=== PATIENT | female | born 1950 | race Caucasian/White ===

== ENCOUNTER 2016-10-01 14:34 | Inpatient (IN) ==
[2016-10-01] MEDS ORDERED: ZOFRAN IV ONE (14:37)
[2016-10-01] MEDS ORDERED: NS 1,000 ML IV ONE (14:49)
[2016-10-01 15:08] LABS: MANUAL DIFF NEEDED? NO
[2016-10-01 15:15] LABS: BASO% 0.2 % (0.0-0.8); EOS# 0.07 X1000 (0.0-0.7); EOS% 0.8 % (0.0-10.0); HEMATOCRIT 45.9 % (37.0-47.0); HEMOGLOBIN 15.4 g/dL (12.0-16.0); IMM GRAN# 0.02 X1000 (0.0-0.04); IMM GRAN% 0.2 % (0.0-0.5); LYMPH# 2.09 X1000 (1.2-3.4); MCH 28.8 PG (27-31); MCHC 33.6 g/dL (33-37); MONO# 0.72 X1000 (0.11-0.59); MONO% 8.3 % (1.7-9.3); MPV 11.1 FL (7.4-10.4); NEUT% 66.5 % (42.2-75.2); PLT 441 X1000 (130-400); RBC 5.34 XMIL (4.2-5.4)
[2016-10-01 15:33] LABS: ALBUMIN 4.7 g/dL (3.5-5.0); CALCIUM 10.4 mg/dL (8.8-10.2); MAGNESIUM 1.7 mg/dL (1.5-2.7); POTASSIUM 2.9 mmol/L (3.5-5.1); TOTAL BILIRUBIN 0.36 mg/dL (0.20-1.00); TOTAL PROTEIN 8.5 g/dL (6.3-8.3)
[2016-10-01 15:58] LABS: INR 1.08; PROTIME 11.4 Seconds (9.2-11.7); PTT 28.1 Seconds (22.0-36.0)
[2016-10-01] MEDS ORDERED: KLOR-CON PO ONE (16:25)
[2016-10-01 16:39] LABS: URINE CULTURE NEEDED? NO; URINE MICRO REVIEW NEEDED? NO; URINE SOURCE CLEAN CATCH
[2016-10-01 16:49] LABS: BILIRUBIN URINE NEGATIVE (NEGATIVE); BLOOD URINE NEGATIVE (NEGATIVE); COLOR YELLOW; GLUCOSE URINE NEGATIVE (NEGATIVE); LEUKOCYTES URINE NEGATIVE (NEGATIVE); NITRITE URINE NEGATIVE (NEGATIVE); PH URINE 5.5; PROTEIN URINE NEGATIVE (NEGATIVE); SP GRAVITY URINE 1.014; TURBIDITY URINE CLEAR (CLEAR); UROBILINOGEN URINE NORMAL (NORMAL)
[2016-10-01 16:52] LABS: UR EPITHELIAL CELLS <10 /HPF (<10); URINE BACTERIA NEGATIVE /HPF; URINE RBC <10 /HPF (<10); URINE WBC <10 /HPF (<10)
--- NOTE | 2016-10-01 17:38 | PROVIDER DOCUMENTATION ---
This chart was entered by Layne Francois Scribe, acting as scribe for Kendra Arthur MD. HPI-Abdominal Pain/GI Problem - General Source: patient - History of Present Illness-ABD Nature of Presenting Problems: Pt is a 66 year old female who came to the ED with a cc of diarrhea for over a week. Pt reports she saw her PCP one week ago and her symptoms have progressed. Pt reports this morning her diarrhea was red, normally it was yellow. Pt reports she has chronic diarrhea after her gallbladder was removed, but this is worse than normal. Abdominal Pain Onset Location: reports: generalized abdomen Quality of Pain: reports: cramping Severity in ED: reports: mild Onset/Duration: reports: this morning Timing: reports: still present Associated Symptoms: reports: diarrhea, nausea. denies: vomiting Last BM: this morning Dark Stools Present?: reports: bright red blood Rectal Bleeding: reports: bloody diarrhea Bruising or Bleeding Gums?: No Similar Symptoms Previously?: Yes Recently seen or treated by another doctor?: Yes <Kendra Arthur - Last Filed: 10/01/16 17:36> <Jairo Kim - Last Filed: 10/01/16 20:17> - General Chief Complaint: Diarrhea Stated Complaint: n/d Time Seen by Provider: 10/01/16 14:38 Allergies/Adverse Reactions: Patient Allergies Allergy/AdvReac Type Severity Reaction Status Date / Time celecoxib [From Celebrex] AdvReac Unknown Verified 10/01/16 16:01 Home Medications: Home Medication List Medication Instructions Recorded Confirmed Last Taken Type ATORVAstatin [Lipitor] 80 mg PO QHS 01/18/16 10/01/16 1 Day Ago History Acetaminophen [Tylenol] 500 mg PO PRN PRN 01/18/16 10/01/16 1 Day Ago History Atenolol/Chlorthalidone 1 each PO DAILY 01/18/16 10/01/16 1 Day Ago History [Atenolol-Chlorthal 50-25 Tb] Duloxetine [Cymbalta] 60 mg PO DAILY 01/18/16 10/01/16 1 Day Ago History Fenofibrate 160 mg PO DAILY 01/18/16 10/01/16 1 Day Ago History Fish Oil/Dha/Epa [Fish Oil 1,200 1 each PO DAILY 01/18/16 10/01/16 1 Day Ago History mg Fish Oil] Furosemide [Lasix] 20 mg PO DAILY 01/18/16 10/01/16 1 Day Ago History Potassium Chloride E.r. [Micro-K] 40 meq PO DAILY 01/18/16 10/01/16 1 Day Ago History Ranitidine [Zantac] 300 mg PO DAILY 01/18/16 10/01/16 10/01/16 History Tramadol [Ultram] 100 mg PO TID 01/18/16 10/01/16 10/01/16 History Review of Systems - Adult - REVIEW OF SYSTEMS - ADULT Constitutional: denies: chills, fever Eyes: reports: no symptoms reported Ears, Nose, Mouth & Throat: reports: no symptoms reported Cardiovascular: denies: chest pain, syncope Respiratory: reports: no symptoms reported Gastrointestinal: reports: abdominal pain, diarrhea, nausea, rectal bleeding. denies: vomiting Genitourinary: denies: dysuria, hematuria Musculoskeletal: reports: no symptoms reported Integumentary: reports: no symptoms reported Neurological: reports: no symptoms reported Psychiatric: reports: no symptoms reported Endocrine: reports: no symptoms reported Hematologic/Lymphatic: reports: no symptoms reported Allergic/Immunologic: reports: no symptoms reported All Other Systems: Reviewed and Negative <Kendra Arthur - Last Filed: 10/01/16 17:36> - REVIEW OF SYSTEMS - ADULT Constitutional: reports: see HPI <Jairo Kim - Last Filed: 10/01/16 20:17> Past History - Adult - PAST MEDICAL HISTORY-ADULT Review of Records: reports: Nursing Assessment Review Major Childhood Illnesses: reports: denies history Cardiovascular: reports: HTN Respiratory: reports: denies history Gastrointestinal: reports: denies history Obstetrical/Gynecological: reports: denies history Genitourinary: reports: cancer (kidney), kidney disease Musculoskeletal: reports: denies history Neurological: reports: denies history Endocrine/Immune: reports: denies history Other Conditions: reports: denies history - IMMUNIZATION STATUS Childhood Immunizations: See Nurse Assessment Flu Vaccine: See Nurse Assessment - FAMILY HISTORY Family History: reviewed, not pertinent <Kendra Arthur - Last Filed: 10/01/16 17:36> - PAST MEDICAL HISTORY-ADULT Review of Records: reports: Medications Reviewed <Jairo Kim - Last Filed: 10/01/16 20:17> Physical Exam-General - PHYSICAL EXAM-ADULT Initial Vital Signs Reviewed: Yes - CONSTITUTIONAL General Appearance: appears well, mild distress - EYES Eyes: PERRL/EOMI, pink conjunctivae <Kendra Arthur X - Last Filed: 10/01/16 17:36> - CONSTITUTIONAL General Appearance: appears well <Jairo Kim - Last Filed: 10/01/16 20:17> Progress - PLAN OF CARE/RESULTS Progress/Plan/Lab Results: Vital Signs - 8 hr 10/01/16 14:56 Temperature 97.9 F Pulse Rate 77 Respiratory Rate 18 Blood Pressure 136/63 O2 Sat by Pulse Oximetry 100 Laboratory Results - last 24 hr 10/01/16 14:55 WBC 8.71 RBC 5.34 Hgb 15.4 Hct 45.9 MCV 86.0 MCH 28.8 MCHC 33.6 RDW Std Deviation 12.0 Plt Count 441 H MPV 11.1 H Immature Gran % (Auto) 0.2 Neut % (Auto) 66.5 Lymph % (Auto) 24.0 Meigs % (Auto) 8.3 Eos % (Auto) 0.8 Baso % (Auto) 0.2 Immature Gran # (Auto) 0.02 Neut # (Auto) 5.79 Lymph # (Auto) 2.09 Meigs # (Auto) 0.72 H Eos # (Auto) 0.07 Baso # (Auto) 0.02 Orders Category Date Time Status Saline Loc DIRECTED Care 10/01/16 14:37 Active NPO Diet 10/01/16 14:37 Active AMYLASE [CHEM] Stat Lab 10/01/16 14:55 Received CBC WITH ELECTRONIC DIFF [HEME] Stat Lab 10/01/16 14:55 Completed COMPREHENSIVE METABOLIC PANEL [CHEM] Stat Lab 10/01/16 14:55 Received LIPASE [CHEM] Stat Lab 10/01/16 14:55 Received MAGNESIUM [CHEM] Stat Lab 10/01/16 14:55 Received OCCULT BLOOD SCREENING [STOOL] Stat Lab 10/01/16 14:49 Uncollected PROTIME WITH INR [COAG] Stat Lab 10/01/16 14:55 Received PTT [COAG] Stat Lab 10/01/16 14:55 Received URINALYSIS W/POSS RFLX CULT-1 [URINALYSIS] Stat Lab 10/01/16 14:37 Uncollected 0.9% Sodium Chloride Inj [Ns] 1,000 ml Med 10/01/16 14:49 Active IV 999 mls/hr Ondansetron [Zofran] Med 10/01/16 14:37 Discontinued 4 mg IV NOW ONE Result Diagrams: 10/01/16 14:55 10/01/16 14:55 - CHANGE OF SHIFT REPORT (ED Provider) Report Given and Care Transferred to:: Dr. Kim Time of Transfer: 18:00 Items Pending: Labs, CT/MRI Results <Kendra Arthur X - Last Filed: 10/01/16 17:36> - PLAN OF CARE/RESULTS Progress/Plan/Lab Results: Vital Signs - 8 hr 10/01/16 14:56 10/01/16 17:03 10/01/16 19:24 Temperature 97.9 F Pulse Rate 77 80 Respiratory Rate 18 18 Blood Pressure 136/63 150/84 133/77 O2 Sat by Pulse Oximetry 100 99 10/01/16 17:00 Clostridium difficile Antigen (MATTHEW) - Final Stool 10/01/16 17:00 Stool Occult Blood (MATTHEW) - Final Stool Laboratory Results - last 24 hr 10/01/16 10/01/16 10/01/16 14:55 14:55 15:38 WBC 8.71 RBC 5.34 Hgb 15.4 Hct 45.9 MCV 86.0 MCH 28.8 MCHC 33.6 RDW Std Deviation 12.0 Plt Count 441 H MPV 11.1 H Immature Gran % (Auto) 0.2 Neut % (Auto) 66.5 Lymph % (Auto) 24.0 Meigs % (Auto) 8.3 Eos % (Auto) 0.8 Baso % (Auto) 0.2 Immature Gran # (Auto) 0.02 Neut # (Auto) 5.79 Lymph # (Auto) 2.09 Meigs # (Auto) 0.72 H Eos # (Auto) 0.07 Baso # (Auto) 0.02 PT 11.4 INR 1.08 PTT (Actin FS) 28.1 Sodium 132 L Potassium 2.9 L Chloride 89 L Carbon Dioxide 24 L Anion Gap 19 BUN 32 H Creatinine 1.3 H Estimated GFR/1.73 m2 41 BUN/Creatinine Ratio 25 Glucose 155 H Calculated Osmolality 275 Calcium 10.4 H Magnesium 1.7 Total Bilirubin 0.36 AST 34 H ALT 42 H Alkaline Phosphatase 98 Total Protein 8.5 H Albumin 4.7 Globulin 3.8 Albumin/Globulin Ratio 1.2 Amylase 71 Lipase 58 Urine Source Urine Color Urine Turbidity Urine pH Ur Specific [place] Urine Protein Ur Glucose (Stick) Ur Ketones (Stick) Urine Blood Urine Nitrite Urine Bilirubin Urobilinogen Dipstick Urine Leukocytes Urine WBC (Auto) Urine RBC (Auto) U Epithel Cells (Auto) Urine Bacteria (Auto) 10/01/16 16:05 WBC RBC Hgb Hct MCV MCH MCHC RDW Std Deviation Plt Count MPV Immature Gran % (Auto) Neut % (Auto) Lymph % (Auto) Meigs % (Auto) Eos % (Auto) Baso % (Auto) Immature Gran # (Auto) Neut # (Auto) Lymph # (Auto) Meigs # (Auto) Eos # (Auto) Baso # (Auto) PT INR PTT (Actin FS) Sodium Potassium Chloride Carbon Dioxide Anion Gap BUN Creatinine Estimated GFR/1.73 m2 BUN/Creatinine Ratio Glucose Calculated Osmolality Calcium Magnesium Total Bilirubin AST ALT Alkaline Phosphatase Total Protein Albumin Globulin Albumin/Globulin Ratio Amylase Lipase Urine Source CLEAN CATCH Urine Color YELLOW Urine Turbidity CLEAR Urine pH 5.5 Ur Specific [place] 1.014 Urine Protein NEGATIVE Ur Glucose (Stick) NEGATIVE Ur Ketones (Stick) NEGATIVE Urine Blood NEGATIVE Urine Nitrite NEGATIVE Urine Bilirubin NEGATIVE Urobilinogen Dipstick NORMAL Urine Leukocytes NEGATIVE Urine WBC (Auto) <10 Urine RBC (Auto) <10 U Epithel Cells (Auto) <10 Urine Bacteria (Auto) NEGATIVE Orders Category Date Time Status Saline Loc DIRECTED Care 10/01/16 14:37 Active NPO Diet 10/01/16 14:[address] ABD/PELVIS ORAL CONTR ONLY [CT] Stat Exams 10/01/16 16:51 Completed AMYLASE [CHEM] Stat Lab 10/01/16 14:55 Completed C DIFF ANTIGEN [STOOL] Stat Lab 10/01/16 17:00 Completed CBC WITH DIFF [HEME] Stat Lab 10/01/16 20:08 Ordered CBC WITH ELECTRONIC DIFF [HEME] Stat Lab 10/01/16 14:55 Completed COMPREHENSIVE METABOLIC PANEL [CHEM] Stat Lab 10/01/16 14:55 Completed H PYLORI ANTIGEN STOOL [ACEVEDO] Stat Lab 10/01/16 20:09 Uncollected LIPASE [CHEM] Stat Lab 10/01/16 14:55 Completed MAGNESIUM [CHEM] Stat Lab 10/01/16 14:55 Completed OCCULT BLOOD SCREENING [STOOL] Stat Lab 10/01/16 17:00 Completed PROTIME WITH INR [COAG] Routine Lab 10/01/16 15:38 Completed PTT [COAG] Routine Lab 10/01/16 15:38 Completed STOOL CULTURE [RM] Stat Lab 10/01/16 20:09 Uncollected URINALYSIS W/POSS RFLX CULT-1 [URINALYSIS] Stat Lab 10/01/16 16:05 Completed 0.9% Sodium Chloride Inj [Ns] 1,000 ml Med 10/01/16 14:49 Discontinued IV 999 mls/hr Ondansetron [Zofran] Med 10/01/16 14:37 Discontinued 4 mg IV NOW ONE Potassium Chloride E.r. [Klor-Con] Med 10/01/16 16:25 Discontinued 60 meq PO NOW ONE Result Diagrams: 10/01/16 14:55 10/01/16 14:55 - CT/MRI 1 CT Study: Abdomen, Pelvis Impression: Abnormal CT Results: [place], l NEPHRECTOMY, HYSTERECTOMY, PROM FATTY INFILT OF LIVER - CONSULTS/PCP/HOSPITALIST Notification #1 *Consult/PCP/Hospitalist*: Elier Time Discussed: 20:17 Consult Disposition: Admit <Jairo Kim - Last Filed: 10/01/16 20:17> Departure - Departure Date of Disposition Decision: 10/01/16 <Kendra Arthur - Last Filed: 10/01/16 17:36> - Departure Date of Disposition Decision: 10 Time of Disposition Decision: 20:13 Certified Medical Emergency: Emergent - Critical Care Note This patient required my direct & personal management of CC.: No <Jairo Kim - Last Filed: 10/01/16 20:17> - Departure DIAGNOSIS: GI bleed Qualifiers: GI bleed type/associated pathology: unspecified gastrointestinal hemorrhage type Qualified Code(s): K92.2 - Gastrointestinal hemorrhage, unspecified Diarrhea Qualifiers: Diarrhea type: unspecified type Qualified Code(s): R19.7 - Diarrhea, unspecified Disposition: ADMITTED INPATIENT 09 Condition: Good Referrals and Follow-Ups: Nicho Iglesias MD [Primary Care Provider] - This chart was documented by the indicated scribcristina, (Layne Francois Scribe) and accurately reflects the services I performed and decisions made by me, Kendra Arthur MD, as attested by the provider's signature.
--- NOTE | 2016-10-01 19:58 | Diag Imaging Result Doc PS360 ---
EXAM: CT ABD/PELVIS ORAL CONTR ONLY HISTORY: Abd pain with lower GI bleed TECHNIQUE: COMPARISON: 09/25/2012 FINDINGS: There is prominent fatty infiltration of the liver. The gallbladder has been removed. Normal spleen and adrenal glands. Normal noncontrasted pancreas. No adjacent inflammation. The left kidney has been removed. No right renal stone or right-sided hydronephrosis. No aneurysmal dilatation to the aorta. No bowel obstruction. Normal appendix. No abscess. No free air. The urinary bladder is moderately distended. The uterus is been removed. No pelvic mass. IMPRESSION: 1.Cholecystectomy, left nephrectomy, and hysterectomy 2.Prominent fatty infiltration of the liver Electronically signed by Zeke Varela 10/01/2016 7:56 PM
[2016-10-01] MEDS ORDERED: PROTONIX IV ONE (20:12)
[2016-10-01] MEDS ORDERED: SODIUM CHLORIDE 0.9% INJ ONE ×2 (20:12→21:31)
[2016-10-01 20:42] LABS: MANUAL DIFF NEEDED? NO
[2016-10-01 20:45] LABS: BASO% 0.2 % (0.0-0.8); EOS# 0.05 X1000 (0.0-0.7); EOS% 0.4 % (0.0-10.0); HEMATOCRIT 41.7 % (37.0-47.0); HEMOGLOBIN 14.1 g/dL (12.0-16.0); IMM GRAN# 0.05 X1000 (0.0-0.04); IMM GRAN% 0.4 % (0.0-0.5); LYMPH# 2.52 X1000 (1.2-3.4); LYMPH% 20.4 % (20.5-51.1); MCH 29.2 PG (27-31); MCHC 33.8 g/dL (33-37); MCV 86.3 FL (81-99); MONO# 1.15 X1000 (0.11-0.59); MONO% 9.3 % (1.7-9.3); MPV 10.7 FL (7.4-10.4); NEUT% 69.3 % (42.2-75.2); PLT 371 X1000 (130-400); RBC 4.83 XMIL (4.2-5.4)
[2016-10-01] MEDS ORDERED: ZOFRAN IV PRN (21:31)
[2016-10-01] MEDS ORDERED: DILAUDID IV PRN (21:31)
[2016-10-01] MEDS: NS 1,000 ML IV PRN (21:47)
--- NOTE | 2016-10-01 22:24 | HISTORY AND PHYSICAL ---
PRIMARY CARE PHYSICIAN: Dr. Iglesias CHIEF COMPLAINT: Diarrhea and blood in stools. HISTORY OF PRESENTING ILLNESS: A 66-year-old female with a history of GERD, hypertension who had presented to emergency department with a 10-day history of having diarrhea. She states that she was getting weak. She apparently noticed blood in the stools earlier today. Patient subsequently had come to the emergency department. She was evaluated, her stools were examined and her stools were Hemoccult positive. Due to her presenting symptoms, it was thought that she would need hospitalization for further management. At time my examination she denied any headache, fever, chills, chest pain, shortness of breath, hemoptysis or any weight changes but complained of diarrhea and not feeling well. PAST MEDICAL HISTORY: Includes GERD, hypertension, renal cancer. PAST SURGICAL HISTORY: Cholecystectomy, hysterectomy, left nephrectomy. ALLERGIES: No known drug allergies. CURRENT MEDICATIONS: As listed in MAR. SOCIAL HISTORY: She denies any history of smoking, alcohol or illicit drug use. FAMILY HISTORY: No history of coronary disease. REVIEW OF SYSTEMS: Twelve point systems is as in HPI. Other systems negative. PHYSICAL EXAMINATION: GENERAL: Cooperative, friendly female. She is resting comfortably now. VITAL SIGNS: Temperature 97.9 degrees, pulse 77, respiration 18, blood pressure 136/63, she is saturating 100%. HEENT: Atraumatic, normocephalic. Extraocular movements intact. PERRLA. NECK: Supple. CHEST: Clear to auscultation. CARDIOVASCULAR: Regular rate, rhythm. ABDOMEN: Soft. Positive bowel sounds. EXTREMITIES: No edema. NEURO: She is awake, alert, oriented x3. : No bladder distention. SKIN: Warm however there is some poor turgor. LABORATORIES AND STUDIES: Sodium 132, potassium 2.9, chloride 89, CO2 24, BUN is 32, creatinine is 1.3, glucose is 155. WBC 12.38, hemoglobin 14.1, hematocrit 41.7, platelets is 371,000. ASSESSMENT: A 66-year-old female with a history of gastroesophageal reflux disease and hypertension had presented to the emergency department with 10 days history of having diarrhea. She noticed that recently she had some blood in the stools also. She was evaluated in the ER and due to presenting symptoms she would need admission for further GI evaluation. 1. Suspected gastrointestinal bleed. 2. Acute diarrhea. 3. Hypokalemia. 4. Hypertension. PLAN: 1. We will admit the patient to medical floor with telemetry. 2. We will keep patient NPO. 3. We will consult GI. 4. We will do stool studies. 5. Replace her electrolytes and monitor potassium level. 6. We will continue with IV fluid hydration. 7. We will monitor renal function. 8. We will monitor blood pressure. Resume antihypertensive agents. 9. Put patient on DVT prophylaxis with SCD. 10. We will continue to follow and reassess. cc: Kapil Thapa MD MTDD
[2016-10-02] MEDS: TYLENOL PR PRN ×2 (00:22→16:53)
[2016-10-02 06:17] LABS: HEMATOCRIT 38.9 % (37.0-47.0); HEMOGLOBIN 12.9 g/dL (12.0-16.0); MCH 29.3 PG (27-31); MCHC 33.2 g/dL (33-37); MCV 88.4 FL (81-99); MPV 10.6 FL (7.4-10.4); RBC 4.4 XMIL (4.2-5.4)
[2016-10-02 06:43] LABS: CALCIUM 8.9 mg/dL (8.8-10.2); POTASSIUM 3.4 mmol/L (3.5-5.1)
[2016-10-02] MEDS ORDERED: SODIUM CHLORIDE 0.9% 10 ML ONE (07:32)
[2016-10-02] MEDS: PROTONIX IV SCH (08:28)
[2016-10-02] MEDS: TENORMIN PO SCH (08:29)
[2016-10-02] MEDS: HYGROTON PO SCH (08:51)
[2016-10-02] MEDS: NS 1,000 ML IV PRN (11:12)
--- NOTE | 2016-10-02 16:06 | PROGRESS NOTE ---
DATE: 10/02/2016 SUBJECTIVE: No specific complaints today. He has been having copious diarrhea heme-positive on exam. C. difficile toxin and antigen negative. Outpatient on 09/30 and negative now on C. difficile toxin. Culture from 09/30 done through the office showing no enteric pathogens, heme positive during this hospitalization and during the outpatient testing as well. WBCs have been noted on both specimens. OBJECTIVE: Vital Signs: Afebrile. Pulse. Respirations 20, blood pressure 120/69. O2 saturation 98% room air. Cardiovascular: Regular rhythm and rate. Lungs: Computed tomography angiography. Abdomen: Soft, active bowel sounds. No pinpoint tenderness. Extremities: No edema. Neurologic: Nonfocal. LABORATORY DATA/IMAGING: Shows white count 8.9, hemoglobin 12.9, platelets 308,000. PTT normal 11.4, PTT 28.1, potassium up to 3.4, up from 2.9 last evening. Sodium 141, BUN 26, creatinine 1.1. Calcium 8.9. LFTs as well. When LFTs, amylase, lipase normal. Urinalysis normal CT scan abdomen and pelvis done last evening reveals prior cholecystectomy and left nephrectomy and hysterectomy. Prominent fatty infiltration of the liver. ASSESSMENT: 1. Heme-positive diarrheal stools. 2. Hypokalemia, improved with repletion. 3. Hypertension. 4. Prominent fatty liver. 5. Single kidney, long-standing. 6. Chronic pain. 7. Depression. PLAN: At this time. I have spoken with Dr. Lang. He is going to see her in GI consultation with plans for probable colonoscopy tomorrow. Continue IV hydration. Continue her diuretic for blood pressure. Monitor her electrolytes and CBC closely, continue IV PPI. Notably she had some diarrhea with Prilosec in the past and she was in the office on 09/30 and we changed her off of the Prilosec to Zantac, but at this time we will continue the IV Protonix until we can ascertain better what is causing her diarrhea episodes. cc: Nicho Iglesias MD
[2016-10-02] MEDS: POTASSIUM CHLORIDE 20 MEQ in NS 1,000 ML IV PRN (16:53)
--- NOTE | 2016-10-02 18:53 | CONSULTATION ---
DATE OF CONSULTATION: 10/02/2016 REASON FOR CONSULTATION: Ten days of diarrhea with some recent blood in the stool. HISTORY OF PRESENT ILLNESS: This 66-year-old lady, who has a history of gastroesophageal reflux. About 2 weeks ago she has started taking Prevacid and she remembered that she had diarrhea before also with Prevacid but she stopped, but continues to have diarrhea, abdominal cramps, and more recently blood in the stool. Came to the emergency room with Hemoccult positive stool. No fever or chills. No previous history of colitis. No family history of ulcerative colitis or colon cancer. She was admitted for further evaluation. PAST MEDICAL HISTORY: Gastroesophageal reflux disease, hypertension, renal cancer. PAST SURGICAL HISTORY: Cholecystectomy, hysterectomy, and left nephrectomy. ALLERGIES: None. CURRENT MEDICATIONS: As listed in the MAR. SOCIAL HISTORY: She does not smoke, drink, or any drug use. FAMILY HISTORY: Positive for coronary artery disease. No colon cancer or inflammatory bowel disease. REVIEW OF SYSTEMS: Twelve point system negative, other than HPI. PHYSICAL EXAMINATION: General: Cooperative, friendly, resting comfortably. Vital Signs: Temperature 97.9, pulse 77, respirations 18, blood pressure 130/60, saturation 100%. HEENT: No scleral icterus. Mild conjunctival pallor present. Neck: Supple. Trachea in the midline. Heart: Normal first and second heart sounds. Lungs: Clear. Abdomen: Soft, slightly tender vaguely in the left lower quadrant. Bowel sounds present and normal. Extremities: No edema or cyanosis. Neurological: Awake, alert, and oriented. No focal deficits. LABORATORY DATA: Shows potassium is low at 2.9, chloride is low. BUN 32 and creatinine 1.3. H and H are normal. White count is up at 12.38. IMPRESSION AND PLAN: 1. A 66-year-old lady with a new onset of diarrhea with blood in the stool. She will be needing a colonoscopy. 2. Gastroesophageal reflux has been bothering her. She probably needs an upper GI endoscopy as well. 3. Hyperkalemia. 4. Hypertension. Hyperkalemia is being corrected. Her white count is normal. Her CT scan did not show any obvious signs of colitis. cc: MD Nicho Patel MD
[2016-10-03] MEDS: TYLENOL PR PRN (01:15)
[2016-10-03] MEDS: POTASSIUM CHLORIDE 20 MEQ in NS 1,000 ML IV PRN (01:15)
[2016-10-03 05:45] LABS: HEMATOCRIT 36.4 % (37.0-47.0); MCH 29.6 PG (27-31); MCV 89.7 FL (81-99); MPV 10.5 FL (7.4-10.4); RBC 4.06 XMIL (4.2-5.4)
[2016-10-03 06:13] LABS: AGAP 14; BUN 11 mg/dL (8-22); CALCIUM 8.8 mg/dL (8.8-10.2); CHLORIDE 104 mmol/L (98-107); COSMO 283; POTASSIUM 3.3 mmol/L (3.5-5.1); SODIUM 142 mmol/L (136-145); TCO2 24 mmol/L (25-35)
[2016-10-03] MEDS ORDERED: SODIUM CHLORIDE 0.9% 10 ML ONE (07:35)
[2016-10-03] MEDS ORDERED: DIPRIVAN 1% ONE ×2 (10:05→10:06)
[2016-10-03] MEDS ORDERED: FENTANYL ONE (10:05)
[2016-10-03] MEDS ORDERED: ZOFRAN ONE (12:49)
[2016-10-03] MEDS ORDERED: LABETALOL (DOSE) ONE (12:49)
[2016-10-03] MEDS ORDERED: LR 1,000 ML ONE (12:49)
[2016-10-03] MEDS ORDERED: XYLOCAINE-MPF 2% ONE (12:49)
[2016-10-03] MEDS: PROTONIX IV SCH (13:24)
[2016-10-03] MEDS: TENORMIN PO SCH (13:25)
[2016-10-03] MEDS: HYGROTON PO SCH (13:25)
[2016-10-03 13:44] VITALS: BP 132/82
--- NOTE | 2016-10-03 16:35 | OPERATIVE NOTE ---
PROCEDURE DATE: 10/03/2016 REQUESTING PHYSICIAN: Nicho Iglesias MD PROCEDURE: 1. Esophagogastroduodenoscopy with gastric biopsy. 2. Ileocolonoscopy with random colon biopsies and disimpaction in the rectum. PREOPERATIVE DIAGNOSES: 1. Diarrhea. 2. Rectal bleeding. 3. Abdominal pain. 4. Reflux disease. 5. History of use of baby aspirin since March 2016. POSTOPERATIVE DIAGNOSES: 1. Esophagitis at gastroesophageal junction LA grade 1. 2. Schatzki's ring nonobstructing type in the distal esophagus. 3. Erosive gastritis in body and antrum. 4. Status post biopsy. 5. Normal fundus, cardia, incisura on retroflexion normal duodenal bulb and second portion duodenum. 6. Normal terminal ileum. 7. Stool throughout the colon, more so in the rectum with solid stool impacted there, which was resolved with water jet. 8. Random biopsy obtained from the colon to evaluate for microscopic colitis. 9. Internal hemorrhoids grade 2 were noted on retroflexion. ESTIMATED BLOOD LOSS: Minimal. COMPLICATIONS: None. ANESTHESIA: Monitored anesthesia care per the anesthesiologist. SPECIMENS REMOVED: 1. Random gastric biopsies 2. Random colon biopsies. DESCRIPTION OF PROCEDURE: After informed consent, the patient explained the risks, benefits, indications, alternatives of the procedure, the patient was prepared for EGD and colonoscopy. The risks of the procedure, including infection, bleeding, pain, trauma to the surrounding structures, perforation, explained the patient among others and she acknowledged understanding and agreed to proceed. The pt was brought to the OR. She was turned in the left position. A bite block was placed in patient mouth. After adequate monitored anesthesia care the upper scope was gently introduced to the oral vestibule all the way to the second portion. The esophagus normal in the proximal middle 3rd distal esophagus showed erythema extending to the GE junction suggesting esophagitis LA grade 1. There was a Schatzki's ring at the distal esophagus normal nonobstructing type. The stomach showed evidence of erythema, erosions in the body suggesting gastritis mild to moderate degree, this was biopsied. Retroflexion in the stomach revealed normal fundus, cardia, incisura. The duodenal bulb and second portion of duodenum appeared normal. The air was removed as the scope was withdrawn. The patient was turned around. Rectal exam was found normal rectum, no masses felt. No blood on the examining finger. The colonoscope was gently introduced to the anal verge and advanced to the terminal ileum. The terminal ileum was normal. There was abundant amount of stool in the entire colon more so in the rectum and sigmoid. Rectum and sigmoid had solid stool, this was lavaged. The rest of the colon had thick liquid stool throughout. This was lavaged as well. I did not visualize any major obstructing lesions or any kind of cancers, but lesions less than 5 mm could have been missed because of fair bowel prep. We lavaged the entire colon. There was no underlying evidence of any major mucosal injury. I did biopsy the colon lining to evaluate for any kind of microscopic colitis. I did not visualize any major diverticulosis. Retroflexion in the rectum revealed internal hemorrhoids grade 2. The air was removed as the scope was withdrawn. The patient tolerated the procedure well and is currently monitored in the OR in stable condition. I discussed the findings with patient on waking up and all questions answered. I will also try to call the patient's on his cell phone to discuss the findings. RECOMMENDATIONS: 1. The patient will be on Protonix once daily for 3 months and then we can transition down to Zantac 150 mg p.o. b.i.d. as needed. 2. The patient will follow gastroesophageal reflux life changes. Avoid excessive tea, coffee, soda, tomatoes, onions, spicy foods. 3. The patient will chew the food well. 4. The patient will take MiraLAX 17 g once at bedtime to help prevent constipation because I believe her symptoms could be secondary to constipation, fecal impaction with overflow diarrhea. She has had negative stool studies in the hospital. 5. The patient will followup in the clinic in 1 month after discharge to evaluate and discuss the stomach and colon biopsies. 6. Further recommendations pending the hospital course. cc: MD Nicho Reese MD MTDD
[2016-10-03] MEDS ORDERED: MIRALAX PO SCH (21:00)
[2016-10-04] MEDS ORDERED: PROTONIX PO SCH (07:00)
--- NOTE | 2016-11-08 13:24 | DISCHARGE SUMMARY ---
ADMISSION DATE: 10/01/2016 DISCHARGE DATE: 10/03/2016 DIAGNOSES: 1. Stool impaction distal colon, resolved, status post colonoscopy extraction. 2. Heme-positive diarrheal stools, thought related to #1. 3. Hypokalemia, resolved with repletion. 4. Hypertension. 5. Hyperlipidemia. 6. Prominent fatty liver. 7. Single kidney. 8. Chronic pain. 9. Depression. CONSULTANTS: Dr. Lang/Lisa. PROCEDURES: 1. CT scan abdomen and pelvis with oral contrast only revealing prior cholecystectomy and left nephrectomy and hysterectomy. Prominent fatty liver. 2. EGD revealing esophagitis with gastroesophageal junction LA grade 1 Schatzki's ring with nonobstructing type in the distal esophagus, erosive gastritis in the body and antrum, biopsy performed. 3. Colonoscopy showing stool throughout the colon more prominent with solid stool impaction in the rectum, which was resolved with water jet. Random biopsy done. Internal hemorrhoids grade 2 noted on retroflexion. REASON FOR ADMISSION AND HOSPITAL COURSE: The patient is a 66-year-old, white female, followed in my medical practice, who came in with a 10-day history of diarrhea, blood in the stools, heme- positive per Hemoccult testing. CT abdomen and pelvis was obtained with results as above. She underwent an EGD and colonoscopy with Dr. Gonzalez and water jet resolution of rectal fecal impaction was successful. The patient was discharged home to follow up in my office in 10 days. DISCHARGE MEDICATIONS: 1. Protonix 40 mg p.o. daily. 2. MiraLAX 17 g in 8 ounces of water at bedtime. 3. Tylenol p.r.n. 4. Ultram 100 mg p.o. t.i.d. 5. Lasix 20 mg p.o. q.a.m. 6. Tenoretic 50/25 one p.o. q.a.m. 7. Lipitor 80 mg p.o. at bedtime. 8. Fenofibrate 160 mg p.o. daily. 9. Cymbalta 60 mg p.o. daily. 10. Fish oil 1200 mg p.o. daily. 11. Micro-K 40 mEq p.o. daily. LAB DATA: Showed white count 7 to 12, hemoglobin 12 to 15, platelets fairly normal at 267 to 441. PT 11.4, INR 1.08, PTT 28.1, mildly elevated liver function tests with AST 34, ALT 42, amylase/lipase normal at 71/58. Sodium on admission 2.9 and discharge 3.3, glucose low 100s. BUN elevated on admission at 32 and was 11 by discharge. Creatinine 1.3 had declined to 0.9 with hydration. UA normal. Stool for H. pylori antigen was negative. cc: Nicho Iglesias MD
== END 2016-10-03 14:44 | disposition home or self-care (01) ==
LOC: SUPCPDRO → ED 14:34 → SUATTDRO 22:16 → 4N 22:16
PROVIDERS: ADMIT Family Medicine; ATTEND Family Medicine